=== PATIENT | female | born 1945 | race Caucasian/White ===

== ENCOUNTER → 2021-05-04 | Day surgery (SDC) | payer OTHER ==
[~2021-05-04] VITALS: Ht 162.6 cm; Wt 104.3 kg
[~2021-05-04] MED LIST: ALPRAZOLAM 0.0.25 MG PO; BENADRYL25 MG PO; CELEXA10 MG PO; CITALOPRAM HBR20 MG PO; HCTZ12.5 MG PO; LEXAPRO 10MG TA10 MG PO; PROTONIX 40MG T40 MG PO; TAMIFLU 75MG CA75 MG PO; TRIAMTERENE-HC1 EAC1 PO; VENTOLIN HFA IN18 GM INH
== END | disposition home or self-care (01) ==
LOC: FAS 06:49
DX: Z12.11 Encounter for screening for malignant neoplasm of colon (principal); D12.2 Benign neoplasm of ascending colon; D12.3 Benign neoplasm of transverse colon; K29.50 Unspecified chronic gastritis without bleeding; K22.70 Barrett's esophagus without dysplasia; K21.00 Gastro-esophageal reflux disease with esophagitis, without bleeding; K44.9 Diaphragmatic hernia without obstruction or gangrene; K57.30 Diverticulosis of large intestine without perforation or abscess without bleeding; K64.4 Residual hemorrhoidal skin tags; R19.7 Diarrhea, unspecified; I10 Essential (primary) hypertension; J42 Unspecified chronic bronchitis; E78.00 Pure hypercholesterolemia, unspecified; F41.9 Anxiety disorder, unspecified; F32.A Depression, unspecified; F17.200 Nicotine dependence, unspecified, uncomplicated; Z79.899 Other long term (current) drug therapy; Z72.89 Other problems related to lifestyle; Z90.710 Acquired absence of both cervix and uterus; Z90.49 Acquired absence of other specified parts of digestive tract
CPT/HCPCS: J1610; J2704; J7120

== ENCOUNTER → 2021-09-07 | Day surgery (SDC) | payer OTHER ==
[~2021-09-07] VITALS: Ht 162.6 cm; Wt 108.0 kg
[~2021-09-07] MED LIST changes: +CARAFATE1 GM PO; +PREVALITE4 GM PO
== END | disposition home or self-care (01) ==
LOC: FAS 08:17
DX: K29.50 Unspecified chronic gastritis without bleeding (principal); K31.9 Disease of stomach and duodenum, unspecified; K31.7 Polyp of stomach and duodenum; K22.70 Barrett's esophagus without dysplasia; K44.9 Diaphragmatic hernia without obstruction or gangrene; I10 Essential (primary) hypertension; E78.00 Pure hypercholesterolemia, unspecified; K21.9 Gastro-esophageal reflux disease without esophagitis; G47.33 Obstructive sleep apnea (adult) (pediatric); F32.A Depression, unspecified; F17.290 Nicotine dependence, other tobacco product, uncomplicated; F41.9 Anxiety disorder, unspecified; Z88.6 Allergy status to analgesic agent
CPT/HCPCS: J2704; J7120